=== PATIENT | female | born 1970 | race Caucasian/White ===

== ENCOUNTER → 2019-05-11 | Outpatient (CLI) | payer OTHER ==
[~2019-05-11] VITALS: Ht 167.6 cm; Wt 59.0 kg
[~2019-05-11] MED LIST: ALL DAY ALLERGY10 M3 PO; COLACE100 MG PO; LOSARTAN POTAS100 MG PO; MEDROLDOSEPACK PO; NABUMETONE 500500 M1 PO; NORCO 5-325 TA1 EAC1 PO; OMEPRAZOLE40 MG PO; SINGULAIR 10 MG10 M1 PO; WIXELA 100-501 EACH INH
[2019-05-11 08:33] VITALS: BP 129/79
--- NOTE | 2019-05-11 08:44 | NUR ---
Pain Clinic Assessment: 1. History of Osteoarthritis: Not Applicable History of Rheumatoid Arthritis: Not Applicable 2. Height: 5 ft. 6 in. 167.6 cm. Weight: 130.0 lb. oz. 58.968 kg. Patient's BMI: 21.0 3. Vital Signs: BP: 129/79 Pulse: 55 Resp: 14 Temp: 02 Sat: 100 ECG Mon: 4. Pain Intensity: 5 5. Fall Risk: Dizziness: N Needs help standing or walking: N Fallen in the last 3 months: N Fall risk comments: 6. Patient on Blood Thinner: None 7. History of Hypertension: Y 8. Opioid Therapy greater than 6 weeks: N Opiate Contract Signed: 9. Risk Assessment Tool Provided: low-0 10. Functional Assessment Tool: 11. Recreational Drug Use: Never Drug Type: Tobacco Use: Former Smoker Tobacco Type: Amount or Packs/day: How Many Years: Alcohol Use: Yes Frequency: Weekly Quant: 8
--- NOTE | 2019-05-24 07:57 | HPC ---
[facility] [address] [place] [address] PAIN MANAGEMENT CONSULTATION Name: OSWALDO COREAS Marla Room #: REG HEIDYJohan Colmenares#: [id number] Admission: 05/11/19 Attend Phys: Harvey Ramirez DO Discharge: Date of : 68 Report #: [id number] THIS REPORT FOR: //name// CC: Harvey Lindsay MD DATE OF SERVICE: 05/11/2019 REFERRING PHYSICIAN: Bud Lindsay MD CHIEF COMPLAINT: Low back pain, intermittent lower extremity pain with paresthesias. HISTORY OF PRESENT ILLNESS: As you know, the patient is a very pleasant 48-year-old female who reports a longstanding history of intermittent low back pain and intermittent lower extremity pain with paresthesias. The patient states that her pain began somewhere in 2016. She has trialled [id number] medications, exercise program and core strengthening to improve symptoms. She states her pain was waxing and waning in its presentation, but unfortunately, her symptoms have become more consistent. Due to lack of improvement with conservative treatment options, the patient was subsequently referred to our clinic to discuss treatment options for suspected lumbar radiculopathy and facet arthropathy of the lumbar spine. The patient indicates today pain is continuous, specifically with activities of daily living. Her pain does improve with repositioning. She states pain is sharp in sensation with intermittent numbness and tingling. She places current pain score 5/10, daily average at 6/10, worst pain has been is 9/10. The patient states that driving a car and sitting for long periods of time exacerbates symptoms. She also indicates pain is most present when arising from bed in the morning. She states "it takes me a couple of minutes to gain a position of standing upright." After this, her pain does improve. Pain is improved with [id number]-[id number] medications, but only for a short period of time. She has been referred to our service to discuss treatment options for axial back pain and possible lumbar radiculopathy. PAST MEDICAL HISTORY: 1. Chronic anemia. 2. Hypertension. 3. Gastroesophageal reflux disease. 4. Seasonal allergies. PAST SURGICAL HISTORY: 1. Breast biopsy, 1988. 2. Breast biopsy, 2001. [facility] [address] [place] [address] PAIN MANAGEMENT CONSULTATION Name: OSWALDO COREAS Room #: REG [facility].#: [id number] Admission: 05/11/19 Attend Phys: Harvey Ramirez DO Discharge: Date of : 68 Report #: [id number] 3. Fibroid surgery and oophorectomy in 2005. 4. Hysterectomy, 2018. SOCIAL HISTORY: The patient denies tobacco, IV or illicit drug use. Admits to an occasional alcohol beverage. 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 She is working, not receiving workmen's compensation nor is she trying to obtain disability benefits. She is not in litigation in regards to pain. She is unaccompanied at today's visit. REVIEW OF SYSTEMS: Positive for recent weight gain, chronic sinus problems, frequent and recurrent coughs, nocturia, low back pain, gastroesophageal reflux disease. All other review of systems negative per 12-point review of systems other than those listed in history of present illness. Pain impact score 13/70 indicating mild interference of daily activities secondary to pain. ALLERGIES: No known drug allergies. CURRENT MEDICATIONS: Fluticasone/Solu-Medrol 100/50 inhaled twice a day, omeprazole 40 mg per day, losartan 100 mg per day, montelukast sodium 10 mg per day, cetirizine 10 mg per day and docusate sodium 100 mg per day. IMAGING: MRI lumbar spine obtained 06/24/2016 shows at L1-L2, dilated nerve root sheath cysts within the bilateral foramina. No central canal stenosis. L2-L3, there is a small disk bulge dilated nerve root sheath cyst within the neural foramina. No central canal stenosis. L3-L4, disk bulge dilated nerve root sheath within the neural foramen. No central canal stenosis. L4-L5, broad-based posterior central disk protrusion, bilateral foraminal annular tear, superimposed disk bulge and endplate remodeling. Dilated nerve root sheath within the foramen. There is abutment of the exiting L4 nerve roots. L5-S1, minimal facet arthropathy. No central canal stenosis. PHYSICAL EXAMINATION: VITAL SIGNS: Blood pressure 129/79, pulse 55, respiratory rate 14 and unlabored. The patient is 100% on room air. Height 5 feet 6 inches tall, weight 130 pounds, BMI calculated 21. GENERAL: Well-developed, well-nourished, well-hydrated 48-year-old female appearing stated age, placing current pain score at around 5/10-6/10. HEENT: Normocephalic, atraumatic. Pupils equal, round, reactive to light. Extraocular muscles are intact. Sclerae nonicteric without injection. NEUROLOGIC: Cranial nerves 2-12 grossly intact. Speech is fluent. The patient deemed an excellent historian. LUNGS: Clear, no wheezing, rhonchi or rales. CARDIOVASCULAR: Regular. No appreciable gallop, no rub. ABDOMEN: Soft, nontender, nondistended, normoactive bowel sounds. [address] [address] PAIN MANAGEMENT CONSULTATION Name: OSWALDO COREAS Room #: REG JOLENE Colmenares#: [id number] Admission: 05/11/19 Attend Phys: Harvey Ramirez DO Discharge: Date of : 68 Report #: [id number] EXTREMITIES: Show no clubbing, no cyanosis, no edema. MUSCULOSKELETAL: Lower extremity strength is symmetrical, 5/5. She is intact to light touch from L1 through S2 dermatomes. Seated straight leg raising negative. Supine straight leg raising positive at approximately 65-70 degree angle. KWAME'S test is negative. Modified Gaenslen's positive for axial low back pain. Ankle clonus negative. Babinski is negative. She is intact to light touch from L1 through S2 dermatomes with normal tactile discrimination. Proprioception is normal in the lower extremities. Lumbar provocation testing is met with increasing axial back pain with extension, rotation. Lateral flexion is mildly limited with increase in discomfort. Forward flexion of the lumbar spine tends to improve pain. ASSESSMENT: 1. Chronic lumbar radiculopathy. 2. Lumbosacral spondylosis. 3. Displacement of lumbar intervertebral disk with radiculopathy. 4. Lumbar degeneration. PLAN: 1. Based on today's physical exam and history the patient has provided, the description the patient uses in regards to pain as well as location of symptoms, appears to be related to a lumbar radiculopathy. She does have a significant portion of the facet arthropathy pain leading to axial back discomfort alleviated with forward flexion of lumbar spine, which is fairly typical. We discussed with the patient the treatment options for lumbar radiculopathy and facet arthropathy today. This is based on the physical exam and imaging from 2016. The following was discussed with the patient. We discussed physical therapy, stretching exercises and core strengthening as a way to treat ongoing pain issues. We discussed medication management utilizing a consistent nonsteroidal anti-inflammatory and a low-dose opioid for pain control. We discussed for lumbar radiculopathy epidural injections under fluoroscopic guidance, spinal cord stimulator therapy and ultimately surgical decompression. For facet arthropathy, we discussed intra-articular facet injections, medial branch nerve blocks, radiofrequency lesioning and possible surgical options. After reviewing the risks and benefits of all the proposed treatment options, the patient chose to move forward with medication management and repeating an MRI of the lumbar spine to update our information and to be able to determine the current pathology in the lumbar spine given the findings from the 2016 imaging prior. 2. The patient will be sent for MRI of the lumbar spine without contrast. This will help us further determine the pathology that exists, so that we can better direct her ongoing care. It does, as indicated above, appear the patient has not only facet arthropathy symptoms with axial back pain exacerbated with lumbar provocation but also is suffering from lumbar radiculopathy, which is exacerbated with activities. The combination of these are quite concerning, and [address] [address] PAIN MANAGEMENT CONSULTATION Name: OSWALDO COREAS Room #: REG JOLENE Colmenares#: [id number] Admission: 05/11/19 Attend Phys: Harvey Ramirez DO Discharge: Date of : 68 Report #: [id number] given the findings of the 2016 imaging, I believe that further imaging will be necessary, specifically if interventional treatments or even surgical options might be entertained. The patient will undergo this imaging as quickly as possible, review the findings once they are available. 3. The patient was provided a prescription for Medrol Dosepak. She will take the medication as directed. This will help decrease the inflammatory process the patient is currently experiencing and hopefully reduce overall pain. She will watch for side effects with the medication. She will start this medication as quickly as possible. 4. The patient will be started on nabumetone 500 mg dose. This will be initiated when she reaches the last 2 days of the Medrol Dosepak. She will take this 3 times a day with meals. She will watch for dyspepsia, worsening of blood pressure, lower extremity edema with use of the medication. I have given the patient #90 tablets and 2 refills. The patient will contact our clinic with any questions or concerns in regards to this medication. 5. The patient was provided a prescription of hydrocodone 5/325 one tab p.o. q.4 hours p.r.n. for pain. I have given the patient #60 tablets. I have advised the patient to take this medication only when pain is intolerable, not to rely on the medication prophylactically. The patient will watch for side effects of sleepiness, disorientation, confusion, mental slowing and constipation with its use. 6. We will see the patient back in followup visit once she has completed the MRI requested. We will review those findings and discuss options for treatment based on those findings on the physical exams. 7. We wish to thank Dr. Bud Lindsay for the referral of the patient to our clinic. We will keep you apprised of response to treatment as we address both her facet arthropathy pain in the lumbar spine and her lumbar radicular symptoms. Again, we wish to thank you for the opportunity to see this patient in consultation. <ELECTRONICALLY SIGNED> By: Harvey Ramirez DO 05/24/19 [id number] 0501 Harvey Ramirez DO /nt
== END ==
LOC: PAIN 06:57
DX: M51.16 Intervertebral disc disorders with radiculopathy, lumbar region (principal); M47.817 Spondylosis without myelopathy or radiculopathy, lumbosacral region

== ENCOUNTER → 2019-06-07 | Outpatient (CLI) | payer OTHER ==
[~2019-06-07] VITALS: Ht 167.6 cm; Wt 59.0 kg
[2019-06-07 13:42] VITALS: BP 127/86
--- NOTE | 2019-06-07 13:56 | NUR ---
Pain Clinic Assessment: 1. History of Osteoarthritis: Not Applicable History of Rheumatoid Arthritis: Not Applicable 2. Height: 5 ft. 6 in. 167.6 cm. Weight: 130.0 lb. oz. 58.968 kg. Patient's BMI: 21.0 3. Vital Signs: BP: 127/86 Pulse: 62 Resp: 14 Temp: 02 Sat: 100 ECG Mon: 4. Pain Intensity: 5-6 5. Fall Risk: Dizziness: N Needs help standing or walking: N Fallen in the last 3 months: N Fall risk comments: 6. Patient on Blood Thinner: None 7. History of Hypertension: Y 8. Opioid Therapy greater than 6 weeks: N Opiate Contract Signed: 9. Risk Assessment Tool Provided: low-0 10. Functional Assessment Tool: 11. Recreational Drug Use: Never Drug Type: Tobacco Use: Former Smoker Tobacco Type: Amount or Packs/day: How Many Years: Alcohol Use: Yes Frequency: Weekly Quant: 3
--- NOTE | 2019-06-14 13:04 | HPC ---
[facility] [place] [place] [address] PAIN MANAGEMENT CONSULTATION Name: LYUDMILAOSWALDO Marla Room #: REG HEIDYJohan Colmenares#: [id number] Admission: 06/07/19 Attend Phys: Harvey Ramirez DO Discharge: Date of : 68 Report #: [id number] THIS REPORT FOR: //name// CC: Harvey Lindsay MD DATE OF SERVICE: 06/07/2019 REFERRING PHYSICIAN: Bud Lindsay MD CHIEF COMPLAINT: Low back pain, intermittent lower extremity pain with paresthesias. HISTORY OF PRESENT ILLNESS: As you know, the patient is a very pleasant 48-year-old female who returns today in followup visit to undergo lumbar epidural injection under fluoroscopic guidance. We have taken the liberty of contacting the patient by phone once her MRI was received that was performed 05/23/2019, which showed foraminal disk protrusion at L3-L4, which appears similar to previous evaluation. She did have moderate right and mild left neural foraminal stenosis at the L4-L5 level, which is consistent with the patient's ongoing pain. She returns today in followup visit to undergo lumbar epidural injection under fluoroscopic guidance to address this ongoing pain for which she gives pain level of 5-6/10. States pain is constant, sharp in sensation, exacerbated with sitting, driving, getting in and out of a car or out of a chair, improves with heat, cold compresses and rest. She denies injury or trauma that may have led to symptom occurrence. ALLERGIES: No known drug allergies. CURRENT MEDICATIONS: Fluticasone/salmeterol 100/50 inhaled twice a day, omeprazole 40 mg per day, losartan 100 mg per day, montelukast sodium 10 mg per day, cetirizine 10 mg per day, docusate sodium 100 mg once a day. SOCIAL HISTORY: The patient denies tobacco, IV or illicit drug use. Admits to occasional alcohol beverage. 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 IMAGING: MRI of lumbar spine obtained 05/23/2019 shows L1-L2 essentially unremarkable, L2-L3 unremarkable, L3-L4, slight disk height loss, mild diffuse annular disk bulge, left lateral annular tear and small left foraminal disk protrusion seen with slight progression from previous evaluation. There is no contact to the nerve roots at this level. L4-L5 progressive height loss of the disk with diffuse annular bulge broad-based posterior disk protrusion, similar to prior study, resulting in mild lateral recess stenosis bilaterally. There is moderate right and mild left neural foraminal stenosis. L5-S1, mild facet [address] [address] PAIN MANAGEMENT CONSULTATION Name: OSWALDO COREAS Room #: REG JOLENE Colmenares#: [id number] Admission: 06/07/19 Attend Phys: Harvey Ramirez DO Discharge: Date of : 68 Report #: [id number] arthropathy. No central canal neural foraminal stenosis. PHYSICAL EXAMINATION: VITAL SIGNS: Blood pressure 127/86, pulse 62, respiratory rate 14 and unlabored. The patient is 100% on room air. Height 5 feet 6 inches tall, weight 130 pounds, BMI calculated 21. GENERAL: Well-developed, well-nourished, well-hydrated 48-year-old female appearing stated age, pain is rated today 5-6/10. HEENT: Normocephalic, atraumatic. Pupils equal, round, reactive to light. EXTREMITIES: Show no clubbing, no cyanosis, and no edema. MUSCULOSKELETAL: Lower extremity strength equal and symmetrical 5/5, intact to light touch from L1 through S2 dermatomes. Seated straight leg raising negative. Supine straight leg raising positive at approximately 65-70 degree angle again today on the right greater than left. Modified Gaenslen's positive for some axial low back pain. ASSESSMENT: 1. Lumbar radiculopathy. 2. Displacement of lumbar intervertebral disk with radiculopathy. 3. Lumbosacral spondylosis with radiculopathy. 4. Chronic intractable pain. PLAN: 1. The patient returns today in followup visit where we have reviewed her MRI in its entirety. I am pleased to advise the patient that there is not a significant change from previous imaging. There is some progression of the faint findings at the L4-L5 level consistent with the patient's ongoing pain. We discussed treatment options for the patient today including the requested epidural injection. After this discussion, the patient chose to undergo an epidural injection under fluoroscopic guidance. We were able to obtain authorization for the patient to undergo the procedure today. She has been advised of risks and benefits of the procedure. These risks include but are not necessarily limited to bleeding, bruising, infection, worsening pain, no relief of pain, also risk of temporary or permanent muscle weakness, temporary or permanent nerve damage, possible paralysis and . The patient states understood and wished to proceed. 2. No medication changes made at today's visit. The patient will continue current medical therapy as previously prescribed. 3. We will see the patient back in followup visit in approximately 31 days. At that time, review the efficacy of today's epidural injection and determine if next in the series might be necessary PROCEDURE NOTE DESCRIPTION OF PROCEDURE: L5-S1 paramedian epidural steroid injection under fluoroscopic guidance. [address] [address] PAIN MANAGEMENT CONSULTATION Name: OSWALDO COREAS Marla Room #: REG JOLENE Colmenares#: [id number] Admission: 06/07/19 Attend Phys: Harvey Ramirez DO Discharge: Date of : 68 Report #: [id number] This is the first procedure of the first series that the patient is undergoing. After obtaining written consent, the patient was taken back to the fluoroscopy suite, placed in a prone position with pillow under the abdomen to decrease lumbar lordosis. The skin overlying the lumbosacral area was then prepped and draped in aseptic fashion. The L5-S1 vertebral interspace was then identified by AP fluoroscopy. The skin and subcutaneous tissue overlying the target site of injection was anesthetized with 3 mL 1% lidocaine. A 20-gauge 3-1/2 inch Tuohy needle was then advanced under fluoroscopic guidance towards the epidural space using a paramedian approach. The epidural space was identified using loss of resistance to air technique. After negative aspiration for heme or cerebrospinal fluid, a total of 1 mL of Omnipaque was injected. A lumbar epidurogram was confirmed using both AP and lateral fluoroscopy. After negative aspiration for heme or cerebrospinal fluid, 5 mL of a solution containing 2 mL 40 mg per mL, 80 mg total triamcinolone along with 3 mL lidocaine 1% was injected in increments. Contrast spread was noted posterior epidural space. The needle was then retracted approximately half way and needle tract flushed with 1 mL of 1% lidocaine. Needle was then removed. There were no apparent sensory or motor deficits in the lower extremity following the procedure. A sterile bandage was placed over the injection site. The heart rate, pulse, oximetry and blood pressure were continuously monitored after the procedure. There were no apparent complications. The patient tolerated the procedure well and was carefully escorted to the recovery room in stable condition. There were no apparent complications. After meeting discharge criteria, the patient was then discharged home. <ELECTRONICALLY SIGNED> By: Harvey Ramirez DO 06/14/19 1304 1002 22 Harvey Ramirez DO /nt
== END | disposition home or self-care (01) ==
LOC: PAIN 09:38
DX: M51.16 Intervertebral disc disorders with radiculopathy, lumbar region (principal); M47.27 Other spondylosis with radiculopathy, lumbosacral region; G89.29 Other chronic pain; Z79.899 Other long term (current) drug therapy; Z87.891 Personal history of nicotine dependence

== ENCOUNTER → 2019-07-15 | Outpatient (CLI) | payer OTHER ==
[~2019-07-15] VITALS: Ht 167.6 cm; Wt 58.9 kg
--- NOTE | ~2019-07-15 | HPC ---
[facility] [address] [address] PAIN MANAGEMENT CONSULTATION Name: LYUDMILAOSWALDO Marla Room #: REG HEIDYJohan Colmenares#: [id number] Admission: 07/15/19 Attend Phys: Harvey Ramirez DO Discharge: Date of : 68 Report #: [id number] THIS REPORT FOR: //name// CC: Harvey Lindsay DATE OF SERVICE: 07/15/2019 CHIEF COMPLAINT: Axial back pain. HISTORY OF PRESENT ILLNESS: As you know, the patient is a very pleasant 49-year-old female who has returned today in followup visit with paraspinal muscle tenderness over the lumbar spine. It does not appear the symptoms are related to the facet joints. We established today's appointment to have the patient return to undergo bilateral deep trigger point injections to address myofascial pain. She is placing her current pain score 2-3/10. She states pain is exacerbated with sitting, driving, getting in and out of the car and getting out of a chair, improves with standing for a couple of minutes, heat and cold compresses and medication management. She returns today for trigger point injections. ALLERGIES: No known drug allergies. CURRENT MEDICATIONS: Hydrocodone, nabumetone, docusate sodium, cetirizine, montelukast sodium, losartan, omeprazole, fluticasone. SOCIAL HISTORY: The patient denies tobacco, alcohol or IV illicit drug use. She is working, not receiving workmen's compensation, unaccompanied today. IMAGING: No new imaging available. PHYSICAL EXAMINATION: VITAL SIGNS: Blood pressure 152/88, pulse is 68, respiratory rate 16 and unlabored. The patient is 98% on room air. Height 5 feet 6 inches tall, weight 129.8 pounds, BMI calculated 21.0. GENERAL: Well-developed, well-nourished, well-hydrated 49-year-old female, appearing stated age, pain is rated today 2-3/10. HEENT: Normocephalic, atraumatic. Pupils equal, round, reactive to light. EXTREMITIES: Show no clubbing, no cyanosis, no edema. MUSCULOSKELETAL: There is palpatory tenderness over the paraspinal musculature of lower lumbar spine. No spinous process tenderness. Seated straight leg raising negative. Supine straight leg raising negative. Brandy's test is negative. Modified Gaenslen's positive for axial low back pain. There are 2 discrete trigger points identified bilaterally in the deep tissues of the paraspinal musculature of the lumbar spine. [address] [address] PAIN MANAGEMENT CONSULTATION Name: OSWALDO COREAS Room #: [facility]#: [id number] Admission: 07/15/19 Attend Phys: Harvey Ramirez DO Discharge: Date of : 68 Report #: [id number] ASSESSMENT: 1. Myofascial pain. 2. Chronic intractable pain. PLAN: 1. The patient has returned today in followup visit per our request to undergo trigger point injections to address deep muscle tissue of the lumbar spine. We have established today's appointment for the patient to undergo the procedure. We have advised her of the risks and benefits. These risks include but are not necessarily limited to bleeding, bruising, infection, worsening pain, no relief of pain, also risk of temporary or permanent muscle weakness, temporary or permanent nerve damage, possible paralysis and . The patient states understood and wished to proceed. 2. No medication changes made at today's visit. The patient will continue current medical therapy. 3. We will see the patient back in followup visit on an as needed basis for possible next in the series of trigger point injections. PROCEDURE NOTE PROCEDURE: Bilateral deep paraspinal lumbar trigger point injections. DESCRIPTION OF PROCEDURE: After obtaining written consent, we have taken our patient back to our semi-sterile room. The area overlying the lumbar spine was then prepped and draped in aseptic fashion using chlorhexidine. A 27-gauge 1-1/4 inch needle was used to anesthetize the skin on both the right and left side overlying the deep trigger point and their positioning. By palpating a single finger, we were able to locate both of the trigger points and geno them sterilely with a sterile marker. A two 22-gauge 3-1/2 inch spinal needles with bent tips were then advanced to reach the trigger points. Once the patient's typical radiating pain pattern was reproduced, we aspirated and found negative aspiration for heme. After negative aspiration for heme, 3 mL of solution containing 1 mL 40 mg per mL, 40 mg total triamcinolone and 2 mL bupivacaine 0.5% was injected on the right side and a similar mix of medication injected on the left side in a fanned out distribution to address the trigger points. The needles were removed long term, flushed with 1 mL of 1% lidocaine and removed. Sterile bandage placed over injection site. There were no new motor deficits present in the lower extremities following procedure. The patient tolerated the procedure well, carefully escorted to recovery room after meeting our discharge criteria, discharged home. By: [id number] 22 Harvey Ramirez DO /nt
[2019-07-15 16:12] VITALS: BP 152/88
--- NOTE | 2019-07-15 16:21 | NUR ---
Pain Clinic Assessment: 1. History of Osteoarthritis: Not Applicable History of Rheumatoid Arthritis: Not Applicable 2. Height: 5 ft. 6 in. 167.6 cm. Weight: 129.8 lb. oz. 58.877 kg. Patient's BMI: 21.0 3. Vital Signs: BP: 152/88 Pulse: 68 Resp: 16 Temp: 02 Sat: 98 ECG Mon: 4. Pain Intensity: 2-3 5. Fall Risk: Dizziness: N Needs help standing or walking: N Fallen in the last 3 months: N Fall risk comments: 6. Patient on Blood Thinner: None 7. History of Hypertension: Y 8. Opioid Therapy greater than 6 weeks: N Opiate Contract Signed: 9. Risk Assessment Tool Provided: low-0 10. Functional Assessment Tool: 11. Recreational Drug Use: Never Drug Type: Tobacco Use: Former Smoker Tobacco Type: Amount or Packs/day: How Many Years: Alcohol Use: Yes Frequency: Quant:
== END | disposition home or self-care (01) ==
LOC: PAIN 13:24
DX: M79.18 Myalgia, other site (principal); G89.29 Other chronic pain; Z98.890 Other specified postprocedural states; Z79.891 Long term (current) use of opiate analgesic; Z79.899 Other long term (current) drug therapy; Z87.891 Personal history of nicotine dependence